=== PATIENT | female | born 1975 | race Caucasian/White ===

== ENCOUNTER 2016-10-03 20:04 | Emergency (ER) | payer OTHER ==
[2016-10-03 20:26] VITALS: RESP 18; O2SAT 99
--- NOTE | 2016-10-03 20:33 | C.PDOC ---
History Of Present Illness 41 yo female w/o significant PMHx BIBA for evaluation of diffuse lower back pain gradually developed since yesterday after sustained mechanical fall. Pt sts , " slipped and fell down to Right side of body". Pain is localized, non- radiating, worse with movement. Otherwise, pt denies head injury, LOC, syncope, headache, dizziness, N/V, visual changes, focal deficits, CP, SOB, dyspnea, abd. pain, UTI sx, saddle anesthesia, urinary or fecal incontinence, denies weakness, sensory or vascular deficits to B/L LEs. At the time of evaluation, appears in pain. Took Aleeve at home without improvement. - HPI Time Seen by Provider: 10/03/16 20:19 Chief Complaint (Nursing): Trauma History Per: Patient Onset/Duration Of Symptoms: Gradual Past Medical History Reviewed: Historical Data, Nursing Documentation, Vital Signs Vital Signs: Last Vital Signs Temp 98.2 F 10/03/16 22:16 Pulse 75 10/03/16 22:16 Resp 18 10/03/16 22:16 BP 117/76 10/03/16 22:16 Pulse Ox 99 10/03/16 22:18 - Medical History PMH: No Chronic Diseases Surgical History: No Surg Hx Family History: States: No Known Family Hx - Social History Hx Tobacco Use: No Hx Alcohol Use: No Hx Substance Use: No - Immunization History Hx Tetanus Toxoid Vaccination: No Hx Influenza Vaccination: No Hx Pneumococcal Vaccination: No Review Of Systems Except As Marked, All Systems Reviewed And Found Negative. Constitutional: Negative for: Fever, Chills Eyes: Negative for: Vision Change ENT: Negative for: Ear Discharge, Nose Discharge, Throat Pain, Throat Swelling Cardiovascular: Negative for: Chest Pain Respiratory: Negative for: Cough, Shortness of Breath, Wheezing Gastrointestinal: Negative for: Nausea, Vomiting, Abdominal Pain Genitourinary: Negative for: Dysuria, Frequency, Incontinence Musculoskeletal: Positive for: Back Pain Skin: Negative for: Rash Neurological: Negative for: Weakness, Numbness, Altered Mental Status, Headache , Dizziness Physical Exam - Physical Exam Appears: Well, Non-toxic, No Acute Distress Skin: Normal Color, Warm, Dry, No Rash, No Ecchymosis Head: Atraumatic, Normacephalic Eye(s): bilateral: Normal Inspection, PERRL, EOMI Ear(s): Bilateral: Normal Nose: Normal, No Discharge Oral Mucosa: Moist, No Drooling Tongue: Normal Appearing Lips: Normal Appearing Throat: Normal, No Erythema, No Exudate, No Drooling Neck: Normal, Normal ROM, No Midline Cervical Tenderness, No Paracervical Tenderness, No Step Off Deformity, Supple Chest: Symmetrical, No Deformity, No Tenderness Cardiovascular: Rhythm Regular Respiratory: Normal Breath Sounds Gastrointestinal/Abdominal: Normal Exam, Soft, No Tenderness, No Distention, No Guarding, No Rebound Back: Normal Inspection, No CVA Tenderness, No Vertebral Tenderness, Muscle Spasm, Paraspinal Tenderness (diffuse lumbar paraspinal tenderness with mild edema. No midline tenderness. No ecchymoses.) Extremity: Normal ROM, No Pedal Edema, No Deformity, No Swelling Extremity: Bilateral: Atraumatic Neurological/Psych: Oriented x3, Normal Speech, Normal Motor, Normal Sensation, Normal Reflexes ED Course And Treatment O2 Sat by Pulse Oximetry: 99 Pulse Ox Interpretation: Normal - Other Rad L-spine X-Ray: Read By Radiologist Interpretation: EXAM: CT Lumbar Spine Without Intravenous Contrast. CLINICAL HISTORY: 41 years old, female; Pain and injury or trauma; Fall; Initial encounter; Blunt trauma (contusions or. hematomas); Low back pain. TECHNIQUE: Axial computed tomography images of the lumbar spine without intravenous contrast. This CT exam. was performed using one or more of the following dose reduction techniques: automated exposure. control, adjustment of the mA and/or kV according to patient size, and/or use of iterative. reconstruction technique. Coronal and sagittal reformatted images were created and reviewed. COMPARISON: No relevant prior studies available. FINDINGS: Vertebrae: No acute fracture. Chronic L4 pars defects. Discs/spinal canal/neural foramina: [id number] degenerative disc disease at L4-L5 level. Disc. herniation at L4-L5 level. Severe central canal stenosis at L4-L5 level. Neural foraminal narrowing at. L4-L5 level. Soft tissues: Unremarkable. IMPRESSION: 1. No fracture. 2. Incidental/non-acute findings are described above. Thank you for allowing us to participate in the care of your patient. Dictated and Authenticated by: Mark Fonseca MD. 10/03/2016 9:50 PM Eastern Time ([place] & [place]) Progress Note: On re-eavl, pt is afebrile, hemodynamiclay stable. non-toxic. Ambulatory in ED with stable gait. Neurologicaly intact. Imaging review and appears without acute abnormalities. Pt advised. ref. to f/u with PMD in 2-3 days for re-eval. return if any new changes. Disposition Counseled Patient/Family Regarding: Studies Performed, Diagnosis, Need For Followup, Rx Given - Disposition Referrals: [facility] [Outside] Disposition: HOME/ ROUTINE Disposition Time: 22:12 Condition: STABLE Additional Instructions: LIght duty to lower back, avoid heavy lifting, bending, etc. Take pain medication as need Follow up with PMD and Ortho in 2-3 days for re-evaluation. return to ED if any worsening or new changes. Prescriptions: Methocarbamol [Robaxin] 500 mg PO TID #14 tab traMADol [Ultram] 50 mg PO TID #7 tab Instructions: Back Pain (ED), Muscle Spasm (ED) Forms: Work Excuse - Clinical Impression Clinical Impression: Lumbar strain, Fall
[2016-10-03 20:48] LABS: RBC URINE 6 /hpf (0-3); URINE BACTERIA RARE (<OCC); URINE BILIRUBIN NEGATIVE (NEGATIVE); URINE BLOOD 2+ (NEGATIVE); URINE COLOR Yellow (YELLOW); URINE GLUCOSE (UA) NORMAL (Normal); URINE KETONE NEGATIVE (NEGATIVE); URINE LEUKOCYTE ESTERASE NEG Leu/uL (Negative); URINE PROTEIN NEGATIVE (NEGATIVE); URINE UROBILINOGEN NORMAL mg/dL (0.2-1.0); WBC URINE 2 /hpf (0-5)
--- NOTE | 2016-10-03 21:51 | CT ---
EXAM: CT Lumbar Spine Without Intravenous Contrast. CLINICAL HISTORY: 41 years old, female; Pain and injury or trauma; Fall; Initial encounter; Blunt trauma (contusions or hematomas); Low back pain TECHNIQUE: Axial computed tomography images of the lumbar spine without intravenous contrast. This CT exam was performed using one or more of the following dose reduction techniques: automated exposure control, adjustment of the mA and/or kV according to patient size, and/or use of iterative reconstruction technique. Coronal and sagittal reformatted images were created and reviewed. COMPARISON: No relevant prior studies available. FINDINGS: Vertebrae: No acute fracture. Chronic L4 pars defects. Discs/spinal canal/neural foramina: [id number] degenerative disc disease at L4-L5 level. Disc herniation at L4-L5 level. Severe central canal stenosis at L4-L5 level. Neural foraminal narrowing at L4-L5 level. Soft tissues: Unremarkable. IMPRESSION: 1. No fracture. 2. Incidental/non-acute findings are described above.
[2016-10-03 22:17] VITALS: BP 117/76; PULSE 75; TEMP 98.2
== END 2016-10-03 22:36 | disposition home or self-care (01) ==
LOC: C.ER 20:04
DX: S39.012A Strain of muscle, fascia and tendon of lower back, initial encounter (principal); W01.0XXA Fall on same level from slipping, tripping and stumbling without subsequent striking against object, initial encounter

== ENCOUNTER 2017-03-29 06:28 | Day surgery (SDC) | payer OTHER ==
[2017-03-25 10:40] VITALS: BMI 26.3
[2017-03-29] MEDS ORDERED: Lidocaine 1% Inj (20ml) ONE (11:51)
[2017-03-29] MEDS ORDERED: Bupivacaine-Epi 0.25%-1:200,000 PF Inj ONE (11:51)
[2017-03-29] MEDS ORDERED: Vancomycin 1 gm/D5W 200 ml 1 GM/200 ML BAG IVPB ONE (11:53)
[2017-03-29] MEDS ORDERED: Methylene Blue 10 mg/mL(10ml) IV ONE (11:53)
[2017-03-29] MEDS ORDERED: Lactated Ringer's 1,000 ML IV ONE ×2 (12:05→14:18)
[2017-03-29] MEDS ORDERED: Midazolam 2 MG/2 ML VIAL ONE (12:10)
[2017-03-29] MEDS ORDERED: Propofol 10 mg/ml Inj (20 ML) ONE (12:10)
[2017-03-29] MEDS ORDERED: Sodium Chloride 0.9% 0 ML IV ONE (12:28)
--- NOTE | 2017-03-29 13:45 | NM ---
HISTORY: 41Y Year old female with right breast cancer. TECHNIQUE: Four injections of 0.25 mCi of 99m (each) Tc filtered sulfur colloid (total volume of 8 ml) were administered into the right appear really breast tissue. Anterior and oblique projection images of the chest were subsequently obtained. FINDINGS: Marked uptake is appreciated at the 4 in injection sites in the periareolar right breast soft tissues and skin. Uptake is appreciated also at the right upper outer quadrant at the inferior axilla/right upper quadrant posterior breast region. IMPRESSION: Positive likely lymph node uptake in at least 1 lymph node at the right axial slice upper-outer quadrant breast region.
[2017-03-29] MEDS ORDERED: Bupivacaine HCl 0.5% PF (10 ml) Inj ONE (14:00)
[2017-03-29] MEDS ORDERED: Oxycodone/Acetaminophen 5/325 mg Tab PO PRN (14:26)
--- NOTE | 2017-03-29 14:30 | PCM.SURG1 ---
Surgeon's Initial Post Op Note - Surgeon's Notes Surgeon: Dr. Grullon Automotive Dismantler: Brett Ryan PGY2 Type of Anesthesia: General Endo Pre-Operative Diagnosis: Breast CA R Operative Findings: R breast tumor Post-Operative Diagnosis: Same Operation Performed: Partial mastectomy of R breast. Sentinal lymph node biopsy Specimen/Specimens Removed: R breast mass, R sentinal lymph nodes. Estimated Blood Loss: EBL {In ML}: 50 Blood Products Given: N/A Drains Used: No Drains Post-Op Condition: Good Date of Surgery/Procedure: 03/29/17 Time of Surgery/Procedure: 14:29
[2017-03-29] MEDS: HYDROmorphone 0.5 mg/0.5 ml ISec IVP PRN ×2 (14:48→15:05)
[2017-03-29 17:02] VITALS: RESP 16; TEMP 97.2
--- NOTE | 2017-03-29 18:06 | MAM ---
PROCEDURE: RIGHT BREAST NEEDLE LOCALIZATION CONFIRMATION VIEWS HISTORY: RIGHT BREAST NEEDLE LOCALIZATION COMPARISON: Post ultrasound-guided biopsy mammography 02/02/2017. TECHNIQUE: Digital mediolateral and craniocaudal mammograms were performed post ultrasound-guided right breast needle localization procedure. FINDINGS: Views submitted demonstrate a modified Kopan's wire passing through the malignancy in question at the medial right breast with a biopsy clip at the anterior margins of the lesion, in both views. Adjustment of the wire was made captured in the 2nd pair of images. Post lumpectomy specimen reveals the mass, wire and surgical clip within the specimen with adequate margins IMPRESSION: Status post needle wire localization with wire in good apparent position. Post lumpectomy specimen reveals the lesion and surgical clip as well as the wire within the specimen, with good peripheral margins. Pathology is pending and upon final diagnosis, and addendum to this report provided.
--- NOTE | 2017-03-29 18:11 | US ---
HISTORY: Right upper outer quadrant malignant breast mass TECHNIQUE/FINDINGS: Timeout was called for ultrasound guided wire needle localization procedure for lesion: in the position: of the breast 1 o'clock, 7 cm from the nipple. The mass was identified with ultrasound at the 1 o'clock radius of the left upper outer quadrant 7 cm from the nipple.:. Overlying skin was marked for procedure. In a sterile field, overlying skin was cleaned. Four cc of 1 percent lidocaine was utilized for local anesthesia. A modified Kopan's needle wire assembly was advanced through the mass under ultrasound control within needle removed leaving the wire behind. A transverse projection was obtained and demonstrated the needle localization wire to be in the lesion: The wire was properly secured in good position. Patient tolerated the procedure well with no complications. Post procedure mammograms reveal adequate positioning of the wire through the mass in question with the prior post ultrasound biopsy clip noted immediately anterior to the mass. Postoperative specimen radiograph demonstrates the biopsy clip, needle and wire through the lesion in question with adequate peripheral margins.. OTHER FINDINGS: None. IMPRESSION: As post successful ultrasound-guided wire localization of a right upper inner quadrant breast mass confirmed on post deployment mammography. Specimen radiograph reveals the lesion in question with clip and wire and good peripheral margins. Following final diagnosis on pathological evaluation of the mass, an addendum to this report will be provided.
[2017-03-29 18:41] VITALS: BP 122/65; PULSE 72; O2SAT 98
--- NOTE | 2017-03-30 01:10 | OP ---
PROCEDURE DATE: 03/29/2017 PREOPERATIVE DIAGNOSIS: Right breast cancer. POSTOPERATIVE DIAGNOSIS: Right breast cancer. PROCEDURES DONE: 1. Preoperative needle localization and right breast partial mastectomy. 2. Right axillary-sentinel lymph node dissection. SURGEON: Amadou Grullon MD ICING MIXER: Brett Ryan. TYPE OF ANESTHESIA: General endotracheal tube anesthesia. ESTIMATED BLOOD LOSS: Around 50 mL. DRAINS: None. PATHOLOGY: The sentinel lymph node was sent for the pathology for the frozen and the partial mastectomy specimen was sent for radiology as well as pathology. INTRAOPERATIVE FINDINGS: The patient had 1-cm right breast cancer at 1 o'clock position, 7 cm from the nipple and then the preoperative needle localization was done. DESCRIPTION OF PROCEDURE: On intraoperative steps, this is a 41-year-old female who was diagnosed with right breast cancer, and the patient was consented for the preoperative needle localization and sentinel lymph node dissection. The patient was brought to the OR, placed supine on the operating table. After induction of the anesthesia, the right breast and the right axilla was prepped and draped in the usual sterile fashion and after that, the methylene blue was injected in the periareolar area and after 15 to 20 minutes, the incision was made on the right axilla and 3 sentinel lymph nodes were identified and it was sent for the frozen and after that, transverse incision was made at right mid breast and the upper and lower flap was created. Medial and lateral flap was also created and dissection was carried down upto the pectoral fascia and muscles and the needle localization wire was delivered into the wound and medially, the dissection was carried down upto the nipple level and the whole partial mastectomy specimen was sent for the radiological confirmation, and after the pathologic evaluation, the sentinel lymph node was negative and there was radiological confirmation for proper dissection and after that, the right breast wound was closed in 2 layers and the right axillary wound was also closed in 2 layers, subcutaneous with a 2-0 Vicryl, skin with a 4-0 Monocryl, and dry sterile dressing was applied. The patient tolerated the procedure well. Count of the instruments and gauze was correct. There was no apparent complication. Amadou Grullon MD
== END 2017-03-29 18:41 | disposition home or self-care (01) ==
LOC: C.SDS 06:28
PROVIDERS: ATTEND Surgery Surgical Critical Care
DX: C50.919 Malignant neoplasm of unspecified site of unspecified female breast (principal)
CPT/HCPCS: 19285; 19301; 38500; 77065; 78195; 88305; 88331; A9541; J1100; J1170; J1885; J2250; J2405; J2704; J3010; J3370; J7120

== ENCOUNTER 2017-12-20 07:54 | Day surgery (SDC) | payer OTHER ==
[2017-12-16 09:31] VITALS: BMI 26.2
[2017-12-20] MEDS ORDERED: Bupivacaine HCl 0.25% PF (30 ml) Inj ONE (09:56)
[2017-12-20] MEDS ORDERED: Lidocaine/Epinephrine 1% 1:100000 10 ML IJ ONE (09:56)
[2017-12-20] MEDS ORDERED: Midazolam 2 MG/2 ML VIAL ONE (10:17)
[2017-12-20] MEDS ORDERED: Propofol 10 mg/ml Inj (20 ML) ONE (10:18)
[2017-12-20] MEDS ORDERED: Lidocaine Hydrochloride 5 ML INJ ONE (10:19)
[2017-12-20] MEDS: Clindamycin 600mg/50ml NS 600 MG/50 ML BAG IVPB ONE ×2 (10:30→10:52)
[2017-12-20] MEDS ORDERED: HYDROmorphone 0.5 mg/0.5 ml ISec IVP PRN (11:38)
--- NOTE | 2017-12-20 11:49 | PCM.SURG1 ---
Surgeon's Initial Post Op Note - Surgeon's Notes Surgeon: Dr. Grullon Laser Print Operator: Eliazar MARTINEZ Pre-Operative Diagnosis: Right breast seroma Operative Findings: See opertaive dictation Post-Operative Diagnosis: Right breast seroma Operation Performed: Right breast seroma drainage, capsulectomy, scar revision Specimen/Specimens Removed: Capsul, Scare tissue Estimated Blood Loss: EBL {In ML}: 10 Blood Products Given: N/A Drains Used: No Drains Post-Op Condition: Good Date of Surgery/Procedure: 12/20/17 Time of Surgery/Procedure: 11:49
[2017-12-20] MEDS ORDERED: Oxycodone/Acetaminophen 5/325 mg Tab PO PRN (11:53)
--- NOTE | 2017-12-20 11:53 | CP.SDSHP ---
Same Day Surgery H & P - History Pre-Op Diagnosis: Paper note in chart - Allergies Allergies: Allergies Penicillins Allergy (Intermediate, Verified 03/25/17 10:36) RASH aspirin Adverse Reaction (Intermediate, Verified 03/25/17 10:36) RASH - Physical Exam Vital Signs: Vital Signs 12/20/17 08:12 Temperature 97.6 F Pulse Rate 62 Respiratory 18 Rate Blood Pressure 118/82 O2 Sat by Pulse 100 Oximetry Short Stay Discharge - Short Stay Discharge Admitting Diagnosis/Reason for Visit: OTHER SPECIFIED DISORDERS OF BREAST Disposition: HOME/ ROUTINE Follow-up: Followup in ten days call office for appointment Instructions: Breast Surgical Biopsy Additional Instructions (Diet, Activity): Do not remove dressing for 5 days, you may shower in 5 days. Do not remove surgical strips they will fall on their own. If you develop new or concerning symptoms please call your primary care doctor or call Dr. Grullon.
[2017-12-20 13:07] VITALS: PULSE 68
[2017-12-20 14:18] VITALS: BP 110/68; RESP 18; TEMP 97; O2SAT 98
--- NOTE | 2017-12-21 02:52 | OP ---
PROCEDURE DATE: 12/20/2017 PREOPERATIVE DIAGNOSES: 1. Right breast pain. 2. Right breast seroma, status post right partial mastectomy. POSTOPERATIVE DIAGNOSES: 1. Right breast seroma. 2. Thick organized capsular collection. PROCEDURES DONE: 1. Drainage of right breast seroma. 2. Capsulectomy. 3. Revision of old scar. SURGEON: Amadou Grullon MD BEAMER HELPER: GINA Leblanc ANESTHESIA: General endotracheal tube anesthesia. ESTIMATED BLOOD LOSS: Around 10 mL. DRAINS: A 15-Welsh Arben drain was placed. PATHOLOGY: 1. The capsule was sent for the pathology. 2. Redundant skin with old scar was sent for the pathology. COMPLICATIONS: None. INTRAOPERATIVE FINDINGS: The patient had approximately 8 x 10 x 6 cm right upper inner quadrant seroma collection with thick capsule. DESCRIPTION OF PROCEDURE: On intraoperative steps, this is a 42-year-old female who was diagnosed with right breast seroma with severe right-sided pain. The patient was consented for the drainage of seroma and a possible debridement. She was brought to the OR, placed supine on the operating room table. After induction of anesthesia, the right breast was prepped and draped in the usual sterile fashion. The incision was made on the previous right upper quadrant incision and after incising the skin and subcutaneous tissue, the seroma cavity was entered. The whole seroma was drained. The patient was found to have a really thick capsule. The capsule was partially excised, and it was sent off the table for the pathology. Hemostasis was achieved. The remaining capsule was cauterized to prevent re-collection of the seroma. Now, the skin edges were excised, and redundant skin with old scar tissue was sent off the table for the pathology. A 15-Welsh Arben drain was placed. The wound was irrigated and wound was closed in 2 layers, the subcutaneous with a 2-0 Vicryl and skin with a 4-0 Monocryl, and dry sterile dressing was placed. The patient tolerated the procedure well. Count of the instruments and gauze was correct. There was no apparent complication. The patient was reversed from anesthesia and sent to the postanesthesia care unit in a stable condition. Amadou Grullon MD [facility] # [id number]
== END 2017-12-20 18:05 | disposition home or self-care (01) ==
LOC: C.SDS 07:54
PROVIDERS: ATTEND Surgery Surgical Critical Care
DX: N64.89 Other specified disorders of breast (principal); N64.4 Mastodynia
CPT/HCPCS: 10140; 88305; J1170; J2250; J2405; J2704; J3010

== ENCOUNTER 2018-08-22 20:35 | Emergency (ER) | payer OTHER ==
[2018-08-22 20:35] VITALS: BMI 26.2
[2018-08-22 21:00] VITALS: RESP 20
--- NOTE | 2018-08-22 21:30 | C.PDOC ---
History Of Present Illness 43 year old female presents to the ER with a complaint of bilateral parasternal pain since last week. 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 Patient was seen by Dr. Mo for right muscle strain a week ago and cleared. Patient with recurrent issue of the right breast, Hx of right breast seroma removed in 2018, sequelae from right breast cancer surgery in situ. Time Seen by Provider: 08/22/18 21:16 Chief Complaint (Nursing): Chest Pain History Per: Patient History/Exam Limitations: no limitations Onset/Duration Of Symptoms: Days Current Symptoms Are (Timing): Still Present Associated Symptoms: denies: Nausea, Dyspnea, Diaphoresis, Syncope Modifying Factors: None Exacerbating Factors: None Alleviating Factors: None Recent travel outside of the [place]: No Past Medical History Reviewed: Historical Data, Nursing Documentation, Vital Signs Vital Signs: Last Vital Signs Temp 98.2 F 08/22/18 20:55 Pulse 70 08/22/18 20:55 Resp 20 08/22/18 20:55 BP 135/88 08/22/18 20:55 Pulse Ox 100 08/22/18 20:55 - Medical History PMH: Denies: Chronic Kidney Disease Family History: States: Unknown Family Hx - Social History Hx Tobacco Use: No Hx Alcohol Use: No Hx Substance Use: No - Immunization History Hx Tetanus Toxoid Vaccination: No Hx Influenza Vaccination: No Hx Pneumococcal Vaccination: No Review Of Systems Constitutional: Negative for: Fever, Chills Cardiovascular: Negative for: Palpitations Respiratory: Negative for: Cough, Shortness of Breath Gastrointestinal: Negative for: Nausea, Vomiting Musculoskeletal: Positive for: Other (Bilateral parasternal pain) Neurological: Negative for: Weakness, Numbness Physical Exam - Physical Exam Appears: Non-toxic Skin: Normal Color, Warm, Dry Head: Atraumatic, Normacephalic Eye(s): bilateral: Normal Inspection Oral Mucosa: Moist Neck: Normal, Supple Chest: No Tenderness Cardiovascular: Rhythm Regular Respiratory: Normal Breath Sounds, No Rales, No Rhonchi, No Wheezing Gastrointestinal/Abdominal: Soft, No Tenderness Back: No CVA Tenderness Extremity: Normal ROM (x4) Neurological/Psych: Oriented x3, Normal Speech ED Course And Treatment ECG: Interpreted By Me ECG Rhythm: Sinus Rhythm ECG Interpretation: Normal Rate From EC O2 Sat by Pulse Oximetry: 100 (Room air) Pulse Ox Interpretation: Normal Medical Decision Making Medical Decision Making: b/l parasternal chest wall discomfort no radiation works as homemaker moving heavy pts same c/o 1 wk ago, rx'd tylenol with some improvement Seen Dr. Hanson- Onc- 1 wk ago- cured of Seroma issues costochondritis. Disposition Doctor Will See Patient In The: Office Counseled Patient/Family Regarding: Studies Performed, Diagnosis - Disposition Referrals: [facility] [Outside] [facility] [Outside] [facility] [Outside] Amadou Grullon MD [Staff Provider] - Huey Mo MD [Staff Provider] - Disposition: HOME/ ROUTINE Disposition Time: 21:30 Condition: GOOD Additional Instructions: b[place]a de hielo 1/2 hora por hora, nada caliente ibuprofeno/Advil 600 mg cada 6 horas toney necessario Sigue con [facility] toney necessario Instructions: Costochondritis Forms: [facility] (Macedonian) Print Language: SWEDISH - Clinical Impression Clinical Impression: Chest wall discomfort - Scribe Statement The provider has reviewed the documentation as recorded by the Scribe Alejandro Contreras All medical record entries made by the Scribe were at my direction and personally dictated by me. I have reviewed the chart and agree that the record accurately reflects my personal performance of the history, physical exam, medical decision making, and the department course for this patient. I have also personally directed, reviewed, and agree with the discharge instructions and disposition.
[2018-08-22 21:55] VITALS: BP 132/70; PULSE 68; TEMP 98
[2018-08-23 00:49] VITALS: O2SAT 100
--- NOTE | 2018-08-24 15:04 | CARD ---
APPROVED REPORT Date of service: 08/22/2018 EKG Measurement Heart [id number] <Conclusion> Normal sinus rhythm Normal ECG
== END 2018-08-22 21:55 | disposition home or self-care (01) ==
LOC: C.ER 20:35
DX: R07.89 Other chest pain (principal)